=== PATIENT | male | born 1970 | race American Indian/Alaskan Native ===

== ENCOUNTER 2021-08-10 00:53 | Emergency (ER) | payer SELFPAY ==
[2021-08-10] MEDS ORDERED: SODIUM CHLORIDE 0.9% 1000 ML 1,000 ML IV ONE (04:15)
[2021-08-10] MEDS ORDERED: NITROGLYCERIN 2% OINT 1 GM TP ONE (04:15)
--- NOTE | 2021-08-10 04:42 | XRay Report ---
CHEST 2 VIEWS INDICATION / CLINICAL INFORMATION: Chest Pain. COMPARISON: None available. FINDINGS: SUPPORT DEVICES: None. HEART / MEDIASTINUM: No significant abnormality. LUNGS / PLEURA: No significant pulmonary or pleural abnormality. No pneumothorax. ADDITIONAL FINDINGS: No significant additional findings. IMPRESSION: 1. No acute findings. Signer Name: Rai Beck DO Signed: 08/10/2021 4:38 AM Workstation Name: [id number]
[2021-08-10] MEDS ORDERED: KETOROLAC 30 MG/1 ML INJ ONE (04:50)
[2021-08-10] MEDS ORDERED: KETOROLAC 30 MG/1 ML INJ IV ONE (05:06)
[2021-08-10 05:12] LABS: Basophils # (Auto) 0.1 K/mm3 (0.0-0.1); Basophils % (Auto) 0.7 % (0.0-1.8); Eosinophils # (Auto) 0.1 K/mm3 (0.0-0.4); Eosinophils % (Auto) 0.7 % (0.0-4.3); Hematocrit 53.1 % (35.5-45.6); Hemoglobin 17.1 gm/dl (11.8-15.2); Lymphocytes # (Auto) 1.9 K/mm3 (1.2-5.4); Lymphocytes % (Auto) 22.2 % (13.4-35.0); Mean Corpuscular HGB Conc 32 % (32-34); Mean Corpuscular Volume 84 fl (84-94); Monocytes # (Auto) 0.6 K/mm3 (0.0-0.8); Monocytes % (Auto) 7.5 % (0.0-7.3); Platelet Count 221 K/mm3 (140-440); Red Blood Count 6.31 M/mm3 (3.65-5.03); Red Cell Distribution Width 14.4 % (13.2-15.2)
[2021-08-10] MEDS ORDERED: MORPHINE 4 MG/1 ML INJ IV ONE (05:13)
[2021-08-10 05:14] LABS: INR 0.92 (0.87-1.13)
[2021-08-10] MEDS ORDERED: MORPHINE 4 MG/1 ML INJ ONE (05:14)
[2021-08-10 05:30] LABS: Alanine Aminotransferase 25 units/L (7-56); Albumin 4.9 g/dL (3.9-5); BUN/Creatinine Ratio 9; Blood Urea Nitrogen 10 mg/dL (9-20); Calcium 9.6 mg/dL (8.4-10.2); Hemolysis Index 13
--- NOTE | 2021-08-10 06:04 | Emergency Department Report ---
ED Chest Pain [facility] - General Chief Complaint: Chest Pain Stated Complaint: CHEST & LEFT ARM PAIN PUI?: No Time Seen by Provider: 08/10/21 04:02 Source: patient Mode of arrival: Ambulatory Limitations: No Limitations - History of Present Illness Initial Comments: chest pain since yesterday started yesterday mid chest going to his back hurts to breathe -: Gradual, hour(s) Onset: during rest Pain Location: substernal Pain Radiation: back, neck Severity scale (0 -10): 9 Quality: heaviness Consistency: intermittent Improves With: nothing - Related Data Allergies Allergy/AdvReac Type Severity Reaction Status Date / Time No Known Allergies Allergy Verified 08/10/21 04:54 Heart Score - HEART Score History: Slightly suspicious EKG: Normal Age: < 45 Risk factors: 1-2 risk factors Troponin: < normal limit HEART Score: 1 - EKG Read Time Time EKG Completed: 16:15 EKG Read Time: 16:15 ED Review of Systems ROS: Stated complaint: CHEST & LEFT ARM PAIN Other details as noted in HPI ED Past Medical Hx - Social History Smoking Status: Never Smoker Substance Use Type: Alcohol ED Physical Exam - General Limitations: No Limitations General appearance: alert, in no apparent distress - Head Head exam: Present: atraumatic, normocephalic - Eye Eye exam: Present: normal appearance - ENT ENT exam: Present: mucous membranes moist - Neck Neck exam: Present: normal inspection - Respiratory Respiratory exam: Present: normal lung sounds bilaterally. Absent: respiratory distress - Cardiovascular Cardiovascular Exam: Present: regular rate, normal rhythm. Absent: systolic murmur, diastolic murmur, rubs, gallop - GI/Abdominal GI/Abdominal exam: Present: soft, normal bowel sounds - Rectal Rectal exam: Present: deferred - Extremities Exam Extremities exam: Present: normal inspection - Back Exam Back exam: Present: normal inspection - Neurological Exam Neurological exam: Present: alert, oriented X3 - Psychiatric Psychiatric exam: Present: normal affect, normal mood - Skin Skin exam: Present: warm, dry, intact, normal color. Absent: rash ED Course Vital Signs 08/10/21 08/10/21 08/10/21 00:57 04:23 04:30 Temperature 97.9 F Pulse Rate 105 H 92 H Respiratory 16 Rate Blood Pressure 170/111 Blood Pressure 171/114 [Right] O2 Sat by Pulse 98 98 Oximetry 08/10/21 08/10/21 08/10/21 04:34 04:46 05:00 Temperature Pulse Rate 81 87 Respiratory 17 13 Rate Blood Pressure 167/82 167/82 95/60 Blood Pressure [Right] O2 Sat by Pulse 93 97 97 Oximetry 08/10/21 08/10/21 08/10/21 05:16 05:17 05:30 Temperature Pulse Rate 88 90 Respiratory 26 H 19 21 Rate Blood Pressure 103/71 111/75 Blood Pressure [Right] O2 Sat by Pulse 97 97 Oximetry 08/10/21 08/10/21 08/10/21 05:32 05:36 05:37 Temperature 98.7 F 98.8 F Pulse Rate 77 Respiratory 15 17 Rate Blood Pressure 113/70 Blood Pressure [Right] O2 Sat by Pulse 100 100 Oximetry 08/10/21 07:59 Temperature Pulse Rate 92 H Respiratory 15 Rate Blood Pressure Blood Pressure 137/80 [Right] O2 Sat by Pulse 100 Oximetry ED Medical Decision Making - Lab Data Result diagrams: 08/10/21 04:37 08/10/21 04:37 - EKG Data -: EKG Interpreted by Tx EKG shows normal: sinus rhythm - EKG Data Interpretation: no acute changes - Radiology Data Radiology results: report reviewed, image reviewed - Medical Decision Making pt was handed over to Dr Stapleton at [address] repeat trop and dispo Critical care attestation.: If time is entered above; I have spent that time in minutes in the direct care of this critically ill patient, excluding procedure time. ED Disposition Clinical Impression: Nonspecific chest pain Disposition: 01 HOME / SELF CARE / HOMELESS Is pt being admited?: No Does the pt Need Aspirin: No Condition: Stable Instructions: Nonspecific Chest Pain, Adult Referrals: PRIMARY CARE, [Primary Care Provider] - 3-5 Days
--- NOTE | 2021-08-10 06:47 | Cat Scan Report ---
CTA CHEST WITH CONTRAST INDICATION / CLINICAL INFORMATION: Shortness of breath. TECHNIQUE: Axial CT images were obtained through the chest after injection of 100 cc of Omnipaque 350 IV contrast. 3 plane MIP and/or 3D reconstructions were produced. All CT scans at this location are performed using CT dose reduction for ALARA by means of automated exposure control. COMPARISON: Chest radiograph from earlier in the day FINDINGS: PULMONARY ARTERIES: No pulmonary emboli. THORACIC AORTA: No significant abnormality. HEART: No significant abnormality. CORONARY ARTERY CALCIFICATION: None. MEDIASTINUM / COLTEN: No significant abnormality. PLEURA: Trace left pleural effusion. No pneumothorax. LUNGS: No acute air space or interstitial disease. ADDITIONAL FINDINGS: None. UPPER ABDOMEN: No acute findings. SKELETAL STRUCTURES: No significant osseous abnormality. IMPRESSION: 1. No CT evidence for pulmonary embolism. 2. Trace left pleural effusion, otherwise no acute findings. Signer Name: Rai Beck DO Signed: 08/10/2021 6:42 AM Workstation Name: [id number]
--- NOTE | 2021-08-10 07:52 | Event Note ---
Date: 08/10/21 Patient signed to me at shift change for follow-up CTA chest and repeat troponin. No evidence of PE on CTA chest. Repeat troponin remains undete ctable. Patient is stable for discharge home with return precautions. Vital signs are stable. Patient stable for discharge home with return precautions.
[2021-08-10 08:08] VITALS: BP 137/80
== END 2021-08-10 08:09 | disposition home or self-care (01) ==
LOC: ED 00:53
DX: R07.9 Chest pain, unspecified (principal)
CPT/HCPCS: 36415; 71046; 71275; 80053; 82550; 83690; 83880; 84484; 85025; 85379; 85610; 93005; 96361; 96374; 96375; 99284; J1885; J2270; J7030; Q9967